=== PATIENT | female | born 1995 | race Caucasian/White ===

== ENCOUNTER → 2016-03-26 | Outpatient (REF) | payer OTHER | LOC: M LAB REF 16:42 | PROVIDERS: ATTEND Internal Medicine | DX: N91.2 Amenorrhea, unspecified (principal); Z32.01 Encounter for pregnancy test, result positive ==

== ENCOUNTER → 2016-03-31 | Outpatient (CLI) | payer OTHER ==
[2016-03-31 15:04] LABS: BASO # 0.2 K/mm3 (0.0-0.2); BASO % 1.2 % (0.0-1.0); EOS # 0.1 K/mm3 (0.0-0.50); EOS % 0.8 % (0.0-3.0); LARGE UNSTAINED CELL # 0.3 K/mm3 (0.0-0.4); LARGE UNSTAINED CELL % 1.9 % (0.0-4.0); LYMPH # 3.1 K/mm3 (1.5-6.5); LYMPH % 21.2 % (24.0-44.0); MEAN CORPUSCULAR HEMOGLOBIN 29.1 pg (27.0-33.0); MEAN CORPUSCULAR HGB CONC 33.2 g/dl (32.0-36.5); MEAN CORPUSCULAR VOLUME 87.6 fl (80.0-96.0); MONO # 0.7 K/mm3 (0.0-0.8); MONO % 4.9 % (0.0-5.0); NEUTROPHILS # 9.4 K/mm3 (1.8-7.7); NEUTROPHILS % 69.9 % (36.0-66.0); PLATELET COUNT, AUTOMATED 349 k/mm3 (150-450); RED CELL DISTRIBUTION WIDTH 13.9 % (11.5-14.5); WHITE BLOOD COUNT 13.4 K/mm3 (4.0-10.0)
[2016-03-31 15:44] LABS: HBsAg Prenatal NEGATIVE (NEGATIVE)
[2016-04-01 10:08] LABS: CONTROL LINE INT CTR LINE PRESENT; HIV SCRN NEGATIVE (NEGATIVE); HIV SCRN1 NEGATIVE (NEGATIVE)
== END ==
LOC: M LAB 14:10
PROVIDERS: ATTEND Specialist
DX: Z34.81 Encounter for supervision of other normal pregnancy, first trimester (principal)

== ENCOUNTER → 2016-07-07 | Outpatient (CLI) | payer OTHER ==
--- NOTE | 2016-07-08 04:11 | REP ---
Clinical: Anatomical evaluation. Comparison: None . Findings: Examination demonstrates a single live intrauterine in cephalic presentation. motion is identified by technologist. Placenta is noted anteriorly and grade 0 without evidence for placenta previa or abruption. Amniotic fluid volume is normal. Cervix measures 4.2 cm in length and appears closed. No evidence for nuchal cord. Gestational age by LMP 18 weeks 4 days with JOS 12/04/2016 . Gestational age by current measurements 19 weeks 2 days with JOS 11/29/2016 . FHR equals 143 beats per minute. BPD 4.5 cm 19 weeks 4 days HC 16.2 cm 19 weeks 0 days AC 14.3 cm 19 weeks 4 days FL 2.8 cm 18 weeks 4 days HL 2.9 cm nine 18 weeks 3 days HC/AC ratio 1.13 Estimated weight 277 grams ( 68th percentile). Anatomical assessment demonstrates normal structures including cranium, choroid plexus, cavum, cerebellum/posterior fossa, facial features, lungs, four-chamber heart/ventricular outflow tracts, diaphragm, stomach, cord insertion/three-vessel cord, kidneys/bladder, spine, and extremities. Impression: Single live intrauterine in cephalic presentation demonstrating appropriate interval growth. Anatomical assessment is complete and normal. Signed by Edvin Tony MD 07/08/2016 04:03 A
== END ==
LOC: M RAD 12:30
PROVIDERS: ATTEND Specialist
DX: Z34.82 Encounter for supervision of other normal pregnancy, second trimester (principal)